=== PATIENT | female | born 1965 | race Caucasian/White ===

== ENCOUNTER → 2017-04-30 | Outpatient (CLI) | payer OTHER ==
[~2017-04-30] MED LIST: BIOTIN1 MG PO; BYSTOLIC 5 MG5 M1 PO; DOXYCYCLINE 10100 MG PO; FISH OIL 1,001000 M2 PO; GLUCOSAMINE &1 EACH PO; XANAX 0.5 MG0.5 M1 PO
== END ==
LOC: RAD 01:32
DX: Z12.31 Encounter for screening mammogram for malignant neoplasm of breast (principal)

== ENCOUNTER → 2018-01-14 | Outpatient (CLI) | payer OTHER | LOC: CAT 08:18 | DX: Z13.6 Encounter for screening for cardiovascular disorders (principal) ==

== ENCOUNTER → 2018-06-30 | Outpatient (CLI) | payer OTHER | LOC: RAD 14:08 | DX: Z12.31 Encounter for screening mammogram for malignant neoplasm of breast (principal) ==

== ENCOUNTER → 2019-04-13 | Outpatient (CLI) | payer OTHER | LOC: NUC 10:18 | DX: N91.2 Amenorrhea, unspecified (principal); Z78.0 Asymptomatic menopausal state ==

== ENCOUNTER → 2019-09-23 | Outpatient (CLI) | payer OTHER | LOC: RAD 09-21 13:34 | DX: Z12.31 Encounter for screening mammogram for malignant neoplasm of breast (principal) ==

== ENCOUNTER → 2020-11-28 | Outpatient (CLI) | payer OTHER | LOC: RAD 11:05 | PROVIDERS: ATTEND Obstetrics & Gynecology | DX: Z12.31 Encounter for screening mammogram for malignant neoplasm of breast (principal) ==

== ENCOUNTER → 2020-12-05 | Outpatient (CLI) | payer OTHER | LOC: SJCVCIMAG 08:16 | PROVIDERS: ATTEND Family Medicine | DX: I10 Essential (primary) hypertension (principal) ==

== ENCOUNTER → 2021-06-11 | Outpatient (CLI) | payer OTHER | LOC: CAT 09:54 | PROVIDERS: ATTEND Nurse Practitioner | DX: N83.292 Other ovarian cyst, left side (principal); N85.4 Malposition of uterus ==